=== PATIENT | female | born 1955 | race Caucasian/White ===

== ENCOUNTER 2016-07-02 19:18 | Observation (INO) | payer OTHER ==
[~2016-07-02] VITALS: Ht 162.6 cm; Wt 77.0 kg
[~2016-07-02 19:18] MED LIST changes: -LEVO50TA6 PO; -LEVO75TA5 PO; -OPTIRAY 320 IV PRN; -OXYC-57 PO
--- NOTE | 2016-07-02 19:57 | EMERGENCY ROOM VISIT NOTE ---
History First contact with patient: 19:39 Chief Complaint: ABDOMINAL PAIN Stated Complaint: ABD PAIN, ACUTE APPENDICITIES Nursing Triage Summary: Patient reports she had outpatient CT scan for possible appendicitis and was called to come to ER for diagnosed appendicitis. Patient also had blood work done earlier today as an outpatient. Patient has had bloating and abdominal pain. History of Present Illness The patient is a 61 year old female who presents to the Emergency Room with complaints of abdominal pain. She had vague abdominal pain for about two weeks, which was dull in character, would spread from the RUQ to RLQ to epigastric region. She felt worse today and left work, and saw her PCP who ordered a CT scan which showed appendicitis. She was sent here from the CT scanner due to appendicitis. She denies any pain or nausea at this time. She did not eat today but had drank contrast up until 6pm. She has had abdominal surgery before and has not had any issues with anesthesia. Review of Systems See HPI for pertinent positives & negatives. A total of 10 systems reviewed and were otherwise negative. Past Medical/Surgical History Medical Problems: (1) Carotid bruit (2) Hyperthyroidism (3) TIA (transient ischemic attack) Family History Cancer Diabetes mellitus Heart disease Hypertension Kidney disease Kidney stones Social History Smoking Status: Never Smoker Alcohol Use: none Drug Use: none Marital Status: Housing Status: lives with family Occupation Status: employed Current/Historical Medications Scheduled Cholecalciferol (Vitamin D3), 2,000 UNIT PO Q2D Levothyroxine Sodium (Levothyroxine Sodium), 1 TAB PO Q2D Levothyroxine Sodium (Levothyroxine Sodium), 1 TAB PO Q2D Metformin Hcl (Glucophage), 1,000 MG PO BID Simvastatin (Zocor), 10 MG PO HS Scheduled PRN Aspirin (Aspirin Ec), 81 MG PO DAILY PRN for PRN Calcium/Vitamin D (Os-Girish 500 Plus D), 1 TAB PO DAILY PRN for PRN Fish Oil ([place]-3), 1 CAP PO QPM PRN for PRN Magnesium Oxide (Mag-Ox), Unknown Dose PO DAILY PRN for PRN Allergies Coded Allergies: Doxycycline (Verified Allergy, Unknown, severe H/A, 07/02/16) Physical Exam Vital Signs Date Time Temp Pulse Resp B/P Pulse Ox O2 Delivery O2 Flow Rate FiO2 07/02/16 19:20 37.1 108 18 143/94 96 Room Air Physical Exam GENERAL: Awake, alert, well-appearing, in no acute distress HENT: Normocephalic, atraumatic. Oropharynx unremarkable. EYES: Normal conjunctiva. Sclera non-icteric. NECK: Supple. No nuchal rigidity. FROM. No JVD. RESPIRATORY: Clear to auscultation. CARDIAC: Regular rate, normal rhythm. Extremities warm and well perfused. Pulses equal. ABDOMEN: Soft, non-distended. Mild tenderness to palpation of RLQ. No rebound or guarding. No masses. RECTAL: Deferred. MUSCULOSKELETAL: Chest examination reveals no tenderness. The back is symmetrical on inspection without obvious abnormality. There is no CVA tenderness to palpation. No joint edema. LOWER EXTREMITIES: Calves are equal size bilaterally and non-tender. No edema. No discoloration. NEURO: Normal sensorium. No sensory or motor deficits noted. SKIN: No rash or jaundice noted. Medical Decision & Procedures Laboratory Results Test 07/02/16 19:50 Medications Administered Medications (Trade) Dose Ordered Sig/Loraine Route Start Time Stop Time Status Last Admin Dose Admin Lactated Ringer's (Lr 1000ml) 1,000 ml @ 125 mls/hr Q8H IV 07/02/16 20:00 08/01/16 19:59 07/02/16 20:33 125 MLS/HR Procedure CT OF THE ABDOMEN AND PELVIS WITH CONTRAST CLINICAL HISTORY: Abdominal pain. COMPARISON STUDY: Abdominal ultrasound May 22, 2007. TECHNIQUE: Following IV administration of 118 mL of Optiray-320, axial images of the abdomen and pelvis were obtained from the lung bases to the proximal femurs. Images were reviewed in the axial, sagittal, and coronal planes. IV contrast was administered without complication. Oral contrast was administered. CT DOSE: 450.57 mGy.cm FINDINGS: The liver is unremarkable with the exception of a 1.3 cm subcapsular segment 7 lesion. This is unchanged since ultrasound of May 22, 2007 and is therefore benign. This likely reflects a hemangioma. The spleen, adrenal glands, kidneys and pancreas are normal. There is no evidence for a bowel obstruction. The appendix is moderately dilated, measuring 1.1 cm in caliber. There is mild periappendiceal infiltration. There is no free air or abscess. The uterus is nonvisualized. No lymphadenopathy is present. Skeletal structures are unremarkable. Mild asymmetric enlargement of the right ovary. IMPRESSION: 1. Findings consistent with acute appendicitis. No free air or abscess. 2. Mild asymmetric enlargement of the right ovary. This finding is of questionable significance but a follow-up nonemergent pelvic ultrasound is recommended. Electronically signed by: Quintin Sharp M.D. 07/02/2016 6:35 PM Dictated Date/Time: 07/02/2016 6:30 PM ED Course 7:54: I evaluated the patient in room C6. A complete history and physical examination were performed. 7:58: I ordered a CBC, CMP - these were later cancelled as the patient had them performed earlier in the day. Her CT scan results were reviewed. She was made NPO and given IV fluids. 8:51: I discussed the case with Dr Sheffield, General Surgeon employee relations manager. He will see the patient. Medical Decision 61 yo F with 2 weeks of abdominal pain and diarrhea - differential includes appendicitis, diverticulitis, cholecystitis, pancreatitis, or gastritis. She had a CT scan that showed appendicitis. Her CT scan also showed R sided ovarian enlargement, which should be follow up as an outpatient. Her exam was relatively benign for her presentation, which is also atypical. With her CT scan findings, she had General Surgery consulted who will come see and accept the patient. Impression Primary Impression: Appendicitis Departure Information Dispostion Being Evaluated By Surgeon Condition GOOD Referrals RV. Stock MD (PCP) Patient Instructions My [facility] Resident Tracking Resident Involvement: Resident Care Provided Care Provided: Adult ED
[2016-07-02] MEDS ORDERED: LACTATED RINGER'S 1000ML 1,000 ML IV SCH (20:00)
--- NOTE | 2016-07-02 20:09 | DIAGNOSTIC IMAGING REPORT ---
CHEST ONE VIEW PORTABLE CLINICAL HISTORY: Preoperative evaluation. COMPARISON STUDY: Chest radiograph February 21, 2016. FINDINGS: Lung volumes are normal. Lungs are clear. There is no pneumothorax or pleural effusion. Cardiac size is normal. Mediastinal contours are normal. There is no evidence of pulmonary edema. IMPRESSION: No acute cardiopulmonary findings. Electronically signed by: Quintin Sharp M.D. 07/02/2016 8:08 PM Dictated Date/Time: 07/02/2016 8:08 PM
--- NOTE | 2016-07-02 21:16 | EMERGENCY ROOM VISIT NOTE ---
History Report prepared by Deborahibnorma: [place] Under the Supervision of: Dr. Gustavo Riley D.O. First contact with patient: 19:39 Chief Complaint: ABDOMINAL PAIN Stated Complaint: ABD PAIN, ACUTE APPENDICITIES Nursing Triage Summary: Patient reports she had outpatient CT scan for possible appendicitis and was called to come to ER for diagnosed appendicitis. Patient also had blood work done earlier today as an outpatient. Patient has had bloating and abdominal pain. History of Present Illness The patient is a 61 year old female who presents to the Emergency Room with complaints of worsening abdominal pain for the past two days. She also notes feeling bloated. The patient has had vague abdominal pain for the past week or two. Today the pain became much worse and localized to the right lower quadrant. The pain is rated 3/10 in severity. The patient denies nausea, vomiting, or diarrhea. She had a CT in outpatient that showed acute appendicitis , and she came straight to the ED. The patient has requested Dr. Desai to perform the surgery, who is not general road production manager. The patient is not on any blood thinners. Source of History: patient Onset: two days Position: abdomen (RLQ) Symptom Intensity: 3/10 Timing: worsening Associated Symptoms: No diarrhea, No nausea, No vomiting Review of Systems See HPI for pertinent positives & negatives. A total of 10 systems reviewed and were otherwise negative. Past Medical & Surgical Medical Problems: (1) Acute appendicitis (2) Carotid bruit (3) Hyperthyroidism (4) TIA (transient ischemic attack) Family History Cancer Diabetes mellitus Heart disease Hypertension Kidney disease Kidney stones Social History Smoking Status: Never Smoker Alcohol Use: none Drug Use: none Marital Status: Housing Status: lives with family Occupation Status: employed Current/Historical Medications Scheduled Cholecalciferol (Vitamin D3), 2,000 UNIT PO Q2D Levothyroxine Sodium (Levothyroxine Sodium), 1 TAB PO Q2D Levothyroxine Sodium (Levothyroxine Sodium), 1 TAB PO Q2D Metformin Hcl (Glucophage), 1,000 MG PO BID Simvastatin (Zocor), 10 MG PO HS Scheduled PRN Aspirin (Aspirin Ec), 81 MG PO DAILY PRN for PRN Calcium/Vitamin D (Os-Girish 500 Plus D), 1 TAB PO DAILY PRN for PRN Fish Oil ([place]-3), 1 CAP PO QPM PRN for PRN Magnesium Oxide (Mag-Ox), Unknown Dose PO DAILY PRN for PRN Allergies Coded Allergies: Doxycycline (Verified Allergy, Unknown, severe H/A, 07/02/16) Physical Exam Vital Signs Date Time Temp Pulse Resp B/P Pulse Ox O2 Delivery O2 Flow Rate FiO2 07/02/16 21:51 77 16 112/69 97 Room Air 07/02/16 19:20 37.1 108 18 143/94 96 Room Air Physical Exam CONSTITUTIONAL/VITAL SIGNS: Reviewed / noted above. GENERAL: Non-toxic in appearance. INTEGUMENTARY: Warm, dry, and [place]. HEAD: Normocephalic. EYES: without scleral icterus or trauma. ENT/OROPHARYNX: clear and moist. LYMPHADENOPATHY/NECK: Is supple without lymphadenopathy or meningismus. RESPIRATORY: Lungs clear and equal. CARDIOVASCULAR: Regular rate and rhythm. GI/ABDOMEN: Soft and nontender. No organomegaly or pulsatile mass. No rebound or guarding. Normal bowel sounds. EXTREMITIES: Warm and well perfused. BACK: No CVA tenderness. NEUROLOGICAL: Intact without focal deficits. PSYCHIATRIC: normal affect. MUSCULOSKELETAL: Normally developed with good muscle tone. Medical Decision & Procedures ER Provider Diagnostic Interpretation: CT results as stated below per my review and radiologist interpretation: CT OF THE ABDOMEN AND PELVIS WITH CONTRAST CLINICAL HISTORY: Abdominal pain. COMPARISON STUDY: Abdominal ultrasound May 22, 2007. TECHNIQUE: Following IV administration of 118 mL of Optiray-320, axial images of the abdomen and pelvis were obtained from the lung bases to the proximal femurs. Images were reviewed in the axial, sagittal, and coronal planes. IV contrast was administered without complication. Oral contrast was administered. CT DOSE: 450.57 mGy.cm FINDINGS: The liver is unremarkable with the exception of a 1.3 cm subcapsular segment 7 lesion. This is unchanged since ultrasound of May 22, 2007 and is therefore benign. This likely reflects a hemangioma. The spleen, adrenal glands, kidneys and pancreas are normal. There is no evidence for a bowel obstruction. The appendix is moderately dilated, measuring 1.1 cm in caliber. There is mild periappendiceal infiltration. There is no free air or abscess. The uterus is nonvisualized. No lymphadenopathy is present. Skeletal structures are unremarkable. Mild asymmetric enlargement of the right ovary. IMPRESSION: 1. Findings consistent with acute appendicitis. No free air or abscess. 2. Mild asymmetric enlargement of the right ovary. This finding is of questionable significance but a follow-up nonemergent pelvic ultrasound is recommended. Electronically signed by: Quintin Sharp M.D. 07/02/2016 6:35 PM CHEST ONE VIEW PORTABLE CLINICAL HISTORY: Preoperative evaluation. COMPARISON STUDY: Chest radiograph February 21, 2016. FINDINGS: Lung volumes are normal. Lungs are clear. There is no pneumothorax or pleural effusion. Cardiac size is normal. Mediastinal contours are normal. There is no evidence of pulmonary edema. IMPRESSION: No acute cardiopulmonary findings. Electronically signed by: Quintin Sharp M.D. 07/02/2016 8:08 PM Dictated Date/Time: 07/02/2016 8:08 PM Medications Administered Medications (Trade) Dose Ordered Sig/Loraine Route Start Time Stop Time Status Last Admin Dose Admin Lactated Ringer's 1,000 ml @ 125 mls/hr Q8H IV 07/02/16 20:00 08/01/16 19:59 07/02/16 20:33 125 MLS/HR Sodium Chloride (Nss 1000ml) 1,000 ml @ 999 mls/hr Q1H1M IV 07/02/16 21:45 08/01/16 21:44 07/02/16 21:43 999 MLS/HR Cefoxitin Sodium (Mefoxin IV) 2,000 mg STK-MED ONCE .ROUTE 07/02/16 21:53 07/02/16 21:56 DC 07/02/16 22:01 2,000 MG ED Course 0: Evaluated by my resident. 1999: Previous medical records were reviewed. The patient was evaluated in room C6. A complete history and physical examination was performed. 2000: Lactated Ringer's 1000 ml @ 125 mls/hr. 2099: My resident spoke with the general road production manager surgeon, Dr. Sheffield. He will evaluated the patient. Medical Decision Differential considered: pancreatitis, hepatitis, acute cholecystitis, AAA, UTI , pyelonephritis, kidney stones, appendicitis, diverticulitis, shingles, bowel obstruction, mesenteric ischemia, intussusception,hernia. This is a 61-year-old female who presents to the ED with a chief complaint of abdominal pain. The patient reports a week's worth of generalized abdominal pain. She had an outpatient CT scan today that revealed findings to suggest appendicitis. She had outpatient blood work as well. This has been reviewed. White blood cell count was 11.17. Chemistry panel was normal. Urine was suggestive of possible UTI. Urine culture pending. The patient was referred to the general surgeon on-call. Please see his documentation for additional care and treatment. Impression Primary Impression: Appendicitis Scribe Attestation The scribe's documentation has been prepared under my direction and personally reviewed by me in its entirety. I confirm that the note above accurately reflects all work, treatment, procedures, and medical decision making performed by me. Departure Information Dispostion Being Evaluated By Surgeon Referrals RV. Stock MD (PCP) Patient Instructions My [facility] Problem Qualifiers Primary Impression: Appendicitis Appendicitis type: acute appendicitis
[2016-07-02] MEDS ORDERED: SODIUM CHLORIDE 0.9% 1000ML 1,000 ML IV SCH (21:45)
[2016-07-02 21:51] VITALS: O2SAT 97
[2016-07-02] MEDS ORDERED: CEFOXITIN SOD 2 GM VIAL ONE (21:53)
[2016-07-02] MEDS ORDERED: CEFOXITIN SOD 2 GM VIAL IV STA (22:00)
--- NOTE | 2016-07-02 22:00 | History and Physical ---
History & Physical Date & Time of Service: Jul 02, 2016 at 21:54 Chief Complaint: Abd Pain, Acute Appendicities Primary Care Physician: RV. Stock MD History of Present Illness Source: patient The patient is a 61 year old female who presents to the Emergency Room with complaints of abdominal pain. She had vague abdominal pain for about two weeks, which was dull in character, would spread from the RUQ to RLQ to epigastric region. She felt worse today and left work, and saw her PCP who ordered a CT scan which showed appendicitis. She was sent here from the CT scanner due to appendicitis. She denies any pain or nausea at this time. She did not eat today but had drank contrast up until 6pm. She has had abdominal surgery before and has not had any issues with anesthesia. now pt is still have RLQ pain, pt denies fever, no diarrhea, Past Medical/Surgical History Medical Problems: (1) Carotid bruit Status: Resolved (2) Hyperthyroidism Status: Chronic (3) TIA (transient ischemic attack) Status: Resolved Family History Cancer Diabetes mellitus Heart disease Hypertension Kidney disease Kidney stones Social History Smoking Status: Never Smoker Smokeless Tobacco Use: No Alcohol Use: occasionally Drug Use: none Marital Status: Occupational Status: employed Multi-Drug Resistant Organisms History of MDRO: No Allergies Coded Allergies: Doxycycline (Verified Allergy, Unknown, severe H/A, 07/02/16) Home Medications Scheduled Cholecalciferol (Vitamin D3), 2,000 UNIT PO Q2D Levothyroxine Sodium (Levothyroxine Sodium), 1 TAB PO Q2D Levothyroxine Sodium (Levothyroxine Sodium), 1 TAB PO Q2D Metformin Hcl (Glucophage), 1,000 MG PO BID Simvastatin (Zocor), 10 MG PO HS Scheduled PRN Aspirin (Aspirin Ec), 81 MG PO DAILY PRN for PRN Calcium/Vitamin D (Os-Girish 500 Plus D), 1 TAB PO DAILY PRN for PRN Fish Oil ([place]-3), 1 CAP PO QPM PRN for PRN Magnesium Oxide (Mag-Ox), Unknown Dose PO DAILY PRN for PRN Review of Systems Constitutional: No chills, No fatigue, No fever, No problem reported, No sweats , No weakness, No weight loss Eyes: No diplopia, No discharge, No eye pain, No problem reported, No redness, No worsening of vision ENT: No dental problems, No hearing loss, No nasal symptoms, No problem reported, No sore throat, No tinnitus, No trouble swallowing, No unusual epistaxis Respiratory: No cough, No dyspnea at rest, No dyspnea on exertion, No hemoptysis, No problem reported, No shortness of breath, No sputum, No wheezing Cardiovascular: No PND, No chest pain, No claudication, No edema, No orthopnea , No palpitations, No problem reported Abdomen: + pain Musculoskeletal: No calf pain, No joint pain, No muscle pain, No problem reported, No swelling Genitourinary - Female: No dysmenorrhea, No dysuria, No hematuria, No menorrhagia, No metrorrhagia, No , No problem reported, No rash, No urinary frequency, No urinary incontinence, No urinary retention, No urinary urgency, No vaginal bleeding, No vaginal discharge, No vaginal itching, No vulvodynia Neurologic: No balance problems, No memory loss, No numbness/tingling, No paralysis, No problem reported, No vertigo, No weakness Psychiatric: No anhedonism, No anxiety, No depression symptoms, No insomnia, No problem reported, No substance abuse Hematologic / Lymphatic: No abnormal bleeding/bruising, No clotting problems, No night sweats, No problem reported, No swollen lymph nodes Physical Exam Vital Signs Date Time Temp Pulse Resp B/P Pulse Ox O2 Delivery O2 Flow Rate FiO2 07/02/16 21:51 77 16 112/69 97 Room Air 07/02/16 19:20 37.1 108 18 143/94 96 Room Air General Appearance: WD/WN, + mild distress Head: normocephalic Eyes: normal inspection ENT: normal ENT inspection Neck: supple, no JVD Respiratory/Chest: chest non-tender, lungs clear Cardiovascular: regular rate, rhythm, no edema, no gallop, no JVD, no murmur Abdomen/GI: soft, + tenderness (tenderness at RLQ, no rebound pain, ) Extremities/Musculoskelatal: normal inspection, no calf tenderness, normal capillary refill Neurologic/Psych: spa concierge II-XII nml as tested, no motor/sensory deficits, alert, normal mood/affect Skin: normal color, warm/dry, no rash Diagnostics Diagnostic Radiology CT scan-CT DOSE: 450.57 mGy.cm FINDINGS: The liver is unremarkable with the exception of a 1.3 cm subcapsular segment 7 lesion. This is unchanged since ultrasound of May 22, 2007 and is therefore benign. This likely reflects a hemangioma. The spleen, adrenal glands, kidneys and pancreas are normal. There is no evidence for a bowel obstruction. The appendix is moderately dilated, measuring 1.1 cm in caliber. There is mild periappendiceal infiltration. There is no free air or abscess. The uterus is nonvisualized. No lymphadenopathy is present. Skeletal structures are unremarkable. Mild asymmetric enlargement of the right ovary. IMPRESSION: 1. Findings consistent with acute appendicitis. No free air or abscess. 2. Mild asymmetric enlargement of the right ovary. This finding is of questionable significance but a follow-up nonemergent pelvic ultrasound is recommended. CXR normal Impression Assessment and Plan IMP : Acute appendicitis Plan, I recommend to do laparoscopic appendectomy, possible open, D/W benefits, risks and alternatives of the procedure, the risks- infection, bleeding, abscess , injury bowel, FL, DVT, stroke, , pt understood, she agrees with the plan , I answered all questions, ASA Classification: ASA Class II Level of Care Med/Surg VTE Prophylaxis VTE Risk Assessment Done? Y/N: Yes Risk Level: Low Given or contraindicated: SCD's
[2016-07-02] MEDS ORDERED: LIDOCAINE HCL 1% 20 ML VIAL ONE (22:03)
[2016-07-02] MEDS ORDERED: BACITRACIN OINT 15 GM TUBE ONE (22:04)
[2016-07-02] MEDS ORDERED: BUPIVACAINE 0.5 % 5 MG/1 ML MPF 30ML VIAL ONE (22:04)
[2016-07-02] MEDS ORDERED: HYDROmorphone INJ 1 MG/ML SYR IV PRN (22:15)
[2016-07-02] MEDS ORDERED: ONDANSETRON INJ 2 MG/ML 2 ML VIAL IV PRN ×2 (22:15→22:45)
[2016-07-02] MEDS ORDERED: MIDAZOLAM HCL 1 MG/ML 2ML VIAL ONE (22:23)
[2016-07-02] MEDS ORDERED: FENTANYL CITRATE INJ 50 MCG/1 ML 2 ML VIAL ONE ×2 (22:23→23:06)
[2016-07-02] MEDS ORDERED: HYDROmorphone INJ 0.5 MG/0.5 ML SYR IV PRN (22:45)
[2016-07-02] MEDS ORDERED: FENTANYL CITRATE INJ 50 MCG/1 ML 2 ML VIAL IV PRN (22:45)
[2016-07-02] MEDS ORDERED: EpHEDrine SULFATE INJ 50 MG/ML AMP IV PRN (22:45)
[2016-07-02] MEDS ORDERED: ATROPINE SULFATE 0.1 MG/ML 5ML SYR IV PRN (22:45)
[2016-07-02] MEDS ORDERED: ONDANSETRON INJ 2 MG/ML 2 ML VIAL ONE (23:09)
[2016-07-02] MEDS ORDERED: PROPOFOL IV EMULSION 10 MG/ML 20 ML VIAL IV ONE (23:09)
[2016-07-02] MEDS ORDERED: SUCCINYLCHOLINE 100MG/5ML SYR IV ONE (23:09)
[2016-07-02] MEDS ORDERED: DEXAMETHASONE SOD INJ 4 MG/ML VIAL ONE (23:09)
[2016-07-02] MEDS ORDERED: ROCURONIUM BROMIDE 10 MG/ML 5 ML VIAL ONE (23:09)
[2016-07-02] MEDS ORDERED: IV FLUIDS COMPLETED PRN (23:15)
[2016-07-03] VITALS (10 sets, daily range): BP systolic 96–113; BP diastolic 47–76; PULSE 68–90; TEMP 36.7–37.2; O2SAT 95–99; Ht 162.6 cm; Wt 77.0 kg
--- NOTE | 2016-07-03 00:16 | [facility] Post Operative Brief Note ---
Immediate Operative Summary Operative Date Jul 03, 2016. Pre-Operative Diagnosis Acute Appendicitis Post-Operative Diagnosis Acute Appendicitis Procedure(s) Performed Laparoscopic Appendectomy Surgeon Dr. Sheffield Manager Customs Surgeon(s) none Estimated Blood Loss 10 cc Findings Acute appendicitis Fluids (cc crystalloids) 1200ml Specimens A: Appendix Drains none Anesthesia general Complication(s) None Disposition Recovery Room / PACU
--- NOTE | 2016-07-03 01:10 | Anesthesiology Progress Note ---
Anesthesia Post Op Note Date & Time Jul 03, 2016 at 01:09 Vital Signs Pain Intensity: 4 Vital Signs Past 12 Hours Date Time Temp Pulse Resp B/P Pulse Ox O2 Delivery O2 Flow Rate FiO2 07/03/16 01:00 36.6 64 16 128/69 100 Nasal Cannula 2 07/03/16 00:45 36.2 68 16 106/54 100 Nasal Cannula 2 07/03/16 00:40 36.2 56 18 105/63 100 Nasal Cannula 2 07/03/16 00:30 36.2 16 105/63 100 Nasal Cannula 4 07/03/16 00:25 36.2 63 16 107/61 100 Venturi Mask 10 07/03/16 00:20 36.2 65 12 100/67 100 Venturi Mask 07/02/16 21:51 77 16 112/69 97 Room Air 07/02/16 19:20 37.1 108 18 143/94 96 Room Air Notes Mental Status: alert / awake / arousable, participated in evaluation Pt Amnestic to Procedure: Yes Nausea / Vomiting: adequately controlled Pain: adequately controlled Airway Patency, RR, SpO2: stable & adequate BP & HR: stable & adequate Hydration State: stable & adequate Anesthetic Complications: no major complications apparent
[2016-07-03] MEDS: D5W AND 1/2NSS + 20MEQ KCL 1,000 ML IV SCH ×2 (01:57→12:52)
--- NOTE | 2016-07-03 03:49 | OPERATIVE REPORT ---
DATE OF OPERATION: 07/02/2016 PREOPERATIVE DIAGNOSIS: Acute appendicitis. POSTOPERATIVE DIAGNOSIS: Same. OPERATION: Laparoscopic appendectomy. SURGEON: Roberto Sheffield MD ANESTHESIA: General. ESTIMATED BLOOD LOSS: About 10 mL. IV FLUIDS: 1200 mL. FINDINGS: Acute appendicitis. COMPLICATIONS: None. INDICATIONS FOR THE PROCEDURE: This is a 61-year-old female, who presented to the ED with 2 weeks history of right lower quadrant pain and the patient had a CT scan with diagnosis of acute appendicitis. We decided to take the patient to the OR to do a laparoscopic appendectomy, possibly open. I did talk to the patient about the benefits, risks and alternate procedure. I indicated the risks may include but not limited such as bleeding, infection, abscess, sepsis, injury to bowel, incisional hernia, myocardial infarction, DVT, stroke and even . The patient understands. She signed the informed consent and I answered all questions. DETAILS OF THE PROCEDURE: We brought the patient to the OR and put the patient in the supine position. The patient received SCD on bilateral legs to prevent DVT. Also, the patient received 2 gram cefoxitin IV for prophylactic antibiotic. The patient received general anesthesia without difficulty. The abdomen was prepped and draped in routine sterile fashion. After timeout, I injected local anesthesia by using 1% lidocaine mixed with 0.5% Marcaine around the umbilical area. I made a small incision just above the umbilicus, opened fascia and opened peritoneum under direct vision. I put a Jesús trocar in, connected to CO2 to create pneumoperitoneum. Flow rate at 6 liters per minute. Pressure not more than 14 mmHg. Once we got a nice pneumoperitoneum, we put a 10 mm camera in and looked around the abdomen. It showed normal finding in the stomach, small bowel, large bowel and liver. However, the appendix has significant inflammation, edema and chronic reaction. Then we put another two 5 mm trocars just below the umbilicus about 3 cm each apart. Once all the trocars were in, I put a grasper in to hold the appendix and used a Harmonic to take down the appendiceal and I used a 45 mm Endo-NELSON staple transection at the base of the appendix, rechecked, no active bleeding, no leak and no injury to bowel. Then we pulled out the appendix through the catch bag. Then we reinserted the Jesús trocar in and looked at the abdomen; showing no injury to the bowel, no leak and no active bleeding. Then we removed all trocars under direct vision. No active bleeding from the trocar sites. The pneumoperitoneum was released. Then using #1 Vicryl, closed the umbilical incision and fascial layer with [id number] x2, closed subcutaneous layer by using 2-0 Vicryl interrupted and closed skin by using 4-0 Vicryl. Another two 5 mm trocar site and closed skin only by using 4-0 Vicryl and then we put the dressing on. The patient tolerated the procedure well. All the instrument, needle and sponge count were correct x2 at the end of case. The specimen was sent to pathology. The patient was transferred to recovery room in stable condition. After the procedure, I did talk to the patient's family members and the patient's about the OR finding and the procedure we did. They understand. I attest to the content of the Intraoperative Record and any orders documented therein. Any exceptions are noted below. ROD
[2016-07-03] MEDS: CEFOXITIN IV 1,000 MG in DEXTROSE 5% 50ML 50 ML IV SCH ×3 (03:50→16:12)
[2016-07-03 06:56] LABS: BASO % 0.1 %; BASO ABS # 0.01 K/uL (0-0.2); COMPLETE YES; HEMATOCRIT 37.7 % (37-47); IG% 0.2 %; LYMPH % 7.4 %; LYMPH ABS # 0.68 K/uL (1.2-3.4); MEAN CELL VOLUME 88.5 fL (80-100); MEAN CORPUSCULAR HEMOGLOBIN 29.6 pg (25-34); MEAN CORPUSCULAR HGB CONC 33.4 g/dl (32-36); MEAN PLATELET VOLUME 10.4 fL (7.4-10.4); MONO % 5.3 %; PLATELET COUNT 218 K/uL (130-400); RED BLOOD COUNT 4.26 M/uL (4.2-5.4); WHITE BLOOD COUNT 9.17 K/uL (4.8-10.8)
--- NOTE | 2016-07-03 08:20 | DISCHARGE SUMMARY ---
DATE OF DISCHARGE: 07/03/2016. ADMITTING DIAGNOSIS: Acute appendicitis. DISCHARGE DIAGNOSIS: Same. OPERATION: Laparoscopic appendectomy. SURGEON: Dr. Roberto Sheffield. DETAILS OF DISCHARGE SUMMARY: This is 61-year-old female who presented to the ED with 2 week history of abdominal pain. The patient had CT scan showed acute appendicitis. We did take the patient to the OR and we did laparoscopic appendectomy. The patient tolerated the procedure well. After the procedure the patient was transferred to recovery room and later on transported to the recovery room in stable condition. The patient doing fine after the procedure. I saw the patient in the morning. PHYSICAL EXAMINATION: VITAL SIGNS: Temperature is 36.8. Heart rate 82. Respiratory rate 18. Blood pressure 105/67. O2 saturation 95% on room air. GENERAL: The patient is alert, awake, oriented x3. No distress. HEAD, EYES, EARS, NOSE, AND THROAT: Within normal limitation. NEUROLOGIC EXAMINATION: Intact. NECK: No JVD. CHEST: Bilateral lung sounds clear. HEART: Normal S1, S2. No murmur. ABDOMEN: Soft, no distention. All dressings intact. Only incision pain. Bowel sounds positive. EXTREMITIES: No edema. So the patient wanted to go home today. We gave the patient the postop care instructions. Instructed the patient the patient should come back to hospital ER if patient develops any severe abdominal pain, nausea, vomiting, temperature, diarrhea. The patient understands. We will follow up the patient in 1 week.
[2016-07-03] MEDS: OXYCODONE/ACETAMINOPHEN 5-325 TAB PO PRN ×2 (10:53→17:26)
[2016-07-03] MEDS ORDERED: OXYC-57 PO (12:04)
--- NOTE | 2016-07-03 12:07 | Discharge Instructions ---
Discharge Instructions Admission Reason for Admission: Acute Appendicitis Discharge Discharge Diagnosis / Problem: s/p laparoscopic appendectomy Discharge Goals Goal(s): Decrease discomfort Activity Recommendations Activity Limitations: as noted below NO heavy lifting over 20 pounds for 2 weeks walking is encouraged may do steps NO driving while taking narcotic pain medication . Instructions / Follow-Up Instructions / Follow-Up May remove dressings in 4 days and then shower may sponge bath and get hair wet in meantime keep dressing clean and dry Follow-up in surgical office in 1 week, please call [phone] to make an appointment if you develop severe abdominal pain, nausea, vomiting, incisional bleeding/ drainage that is not controlled please call office or go to emergency room for further evaluation. Current Hospital Diet Patient's current hospital diet: Regular Diet Discharge Diet Recommended Diet: Regular Diet Procedures Procedures Performed: Laparoscopic Appendectomy Pending Studies Studies pending at discharge: no Medical Emergencies . Who to Call and When: Medical Emergencies: If at any time you feel your situation is an emergency, please call 911 immediately. . Non-Emergent Contact Non-Emergency issues call your: Primary Care Provider, Surgeon Call Non-Emergent contact if: temperature is above 101.5, your pain is not controlled, your pain is worsening, wound has increased drainage, wound has increased redness, wound has increased pain . "Provider Documentation" section prepared by Wanda Plunkett. VTE Core Measure Inpt VTE Proph given/why not?: SCD's [place] Drug Monitoring Program Search Results: patient reviewed within database, no issues identified
--- NOTE | 2016-07-03 15:30 | Surgery Progress Note ---
Surgery Progress Note Date of Service Jul 03, 2016. Subjective Post OP Day: POD # 0 + ambulating, + diet (regular diet), + feeling well, + pain controlled, No SOB, No bowel movement, No chest pain, No complaints, No flatus, No nausea, No vomiting Objective Vital Signs: Date Time Temp Pulse Resp B/P Pulse Ox O2 Delivery O2 Flow Rate FiO2 07/03/16 15:08 36.9 72 16 97/47 97 Room Air 07/03/16 11:30 36.7 69 16 96/69 95 Room Air 07/03/16 07:54 36.7 85 16 113/76 96 Room Air 07/03/16 07:30 Room Air 07/03/16 04:52 36.8 82 18 105/67 95 Room Air 07/03/16 03:50 37.0 88 18 97/57 96 Room Air 07/03/16 02:50 37.2 90 17 105/57 97 Nasal Cannula 2.0 07/03/16 01:52 37.1 71 19 107/64 99 Nasal Cannula 2.0 07/03/16 01:20 37.1 68 14 101/63 96 Room Air 07/03/16 01:20 Nasal Cannula 2.0 07/03/16 01:20 Nasal Cannula 2.0 07/03/16 01:20 Nasal Cannula 2.0 07/03/16 01:00 36.6 64 16 128/69 100 Nasal Cannula 2 07/03/16 00:45 36.2 68 16 106/54 100 Nasal Cannula 2 07/03/16 00:40 36.2 56 18 105/63 100 Nasal Cannula 2 07/03/16 00:30 36.2 16 105/63 100 Nasal Cannula 4 07/03/16 00:25 36.2 63 16 107/61 100 Venturi Mask 10 07/03/16 00:20 36.2 65 12 100/67 100 Venturi Mask 07/02/16 21:51 77 16 112/69 97 Room Air 07/02/16 19:20 37.1 108 18 143/94 96 Room Air General Appearance: WD/WN, no apparent distress Head: normocephalic, atraumatic Respiratory/Chest: no respiratory distress, no accessory muscle use Abdomen: non distended, soft, no organomegaly, no pulsatile mass, + tenderness (appropriate post op) Incision(s): clean (dressing clean and dry), dry Laboratory Results: Results Past 24 Hours Test 07/03/16 06:28 Range/Units White Blood Count 9.17 4.8-10.8 K/uL Red Blood Count 4.26 4.2-5.4 M/uL Hemoglobin 12.6 12.0-16.0 g/dL Hematocrit 37.7 37-47 % Mean Corpuscular Volume 88.5 80-100 fL Mean Corpuscular Hemoglobin 29.6 25-34 pg Mean Corpuscular Hemoglobin Concent 33.4 32-36 g/dl Platelet Count 218 130-400 K/uL Mean Platelet Volume 10.4 7.4-10.4 fL Neutrophils (%) (Auto) 87.0 % Lymphocytes (%) (Auto) 7.4 % Monocytes (%) (Auto) 5.3 % Eosinophils (%) (Auto) 0.0 % Basophils (%) (Auto) 0.1 % Neutrophils # (Auto) 7.97 1.4-6.5 K/uL Lymphocytes # (Auto) 0.68 1.2-3.4 K/uL Monocytes # (Auto) 0.49 0.11-0.59 K/uL Eosinophils # (Auto) 0.00 0-0.5 K/uL Basophils # (Auto) 0.01 0-0.2 K/uL RDW Standard Deviation 44.3 36.4-46.3 fL RDW Coefficient of Variation 13.7 11.5-14.5 % Immature Granulocyte % (Auto) 0.2 % Immature Granulocyte # (Auto) 0.02 0.00-0.02 K/uL Hepatitis C Antibody Screen NEG NEG Assessment & Plan POD # 0 s/p laparoscopic appendectomy - avss - pain controlled with oral Percocet - ambulating and urinating without difficulty Plan: Plan for discharge today Discharge instructions given rx for PO Percocet prn pain follow-up office 1 week
== END 2016-07-03 18:55 | disposition home or self-care (01) ==
LOC: ENRESERVDT → ENRESERVTM → C.EDB 19:19 → C.MSW 22:07
PROVIDERS: ADMIT Surgery; ATTEND Surgery
DX: K35.80 Unspecified acute appendicitis (principal); Z86.73 Personal history of transient ischemic attack (TIA), and cerebral infarction without residual deficits; Z83.3 Family history of diabetes mellitus; Z82.49 Family history of ischemic heart disease and other diseases of the circulatory system; Z84.1 Family history of disorders of kidney and ureter; Z79.82 Long term (current) use of aspirin; Z79.899 Other long term (current) drug therapy

== ENCOUNTER → 2016-07-02 | Outpatient (CLI) | payer OTHER ==
[~2016-07-02] MED LIST: ASPI81TA28 PO; CALC500C70 PO; CHOL20007 PO; GLC/500 PO; LEVO50TA6 PO; LEVO75TA5 PO; MAGN400T6 PO; OMEG10007 PO; OPTIRAY 320 IV PRN; OXYC-57 PO; SIMV10TA2 PO
[2016-07-02 17:13] LABS: BASO % 0.2 %; BASO ABS # 0.02 K/uL (0-0.2); COMPLETE YES; EOS % 3.3 %; HEMATOCRIT 41.4 % (37-47); IG% 0.2 %; LYMPH % 19.6 %; LYMPH ABS # 2.19 K/uL (1.2-3.4); MEAN CELL VOLUME 87.7 fL (80-100); MEAN CORPUSCULAR HEMOGLOBIN 30.1 pg (25-34); MEAN CORPUSCULAR HGB CONC 34.3 g/dl (32-36); MEAN PLATELET VOLUME 10.4 fL (7.4-10.4); MONO % 9.8 %; NEUT % 66.9 %; PLATELET COUNT 251 K/uL (130-400); RED BLOOD COUNT 4.72 M/uL (4.2-5.4); WHITE BLOOD COUNT 11.17 K/uL (4.8-10.8)
[2016-07-02 17:24] LABS: URINE APPEARANCE CLEAR (CLEAR); URINE BILIRUBIN NEG (NEG); URINE COLOR YELLOW; URINE NITRITE NEG (NEG); URINE PH 7.5 (4.5-7.5); URINE SPECIFIC GRAVITY 1.013 (1.000-1.030); UROBILINOGEN NEG (NEG)
[2016-07-02 17:28] LABS: ALT/SGPT 70 U/L (12-78); AST/SGOT 25 U/L (15-37); BLOOD UREA NITROGEN 11 mg/dl (7-18); BUN/CREATININE RATIO 14.2 (10-20); CALCIUM 9.4 mg/dl (8.5-10.1); CARBON DIOXIDE 28 mmol/L (21-32); CHLORIDE 103 mmol/L (98-107); CREATININE 0.75 mg/dl (0.60-1.20); GLUCOSE 89 mg/dl (70-99); POTASSIUM 3.9 mmol/L (3.5-5.1); SODIUM 141 mmol/L (136-145)
[2016-07-02 17:30] LABS: MANUAL MICROSCOPIC REQUIRED? NO; REVIEW REQ? NO
[2016-07-02 17:31] LABS: ALB/GLOB RATIO 1.1 (0.9-2); ALKALINE PHOSPHATASE 117 U/L (45-117)
--- NOTE | 2016-07-02 18:37 | DIAGNOSTIC IMAGING REPORT ---
CT OF THE ABDOMEN AND PELVIS WITH CONTRAST CLINICAL HISTORY: Abdominal pain. COMPARISON STUDY: Abdominal ultrasound May 22, 2007. TECHNIQUE: Following IV administration of 118 mL of Optiray-320, axial images of the abdomen and pelvis were obtained from the lung bases to the proximal femurs. Images were reviewed in the axial, sagittal, and coronal planes. IV contrast was administered without complication. Oral contrast was administered. CT DOSE: 450.57 mGy.cm FINDINGS: The liver is unremarkable with the exception of a 1.3 cm subcapsular segment 7 lesion. This is unchanged since ultrasound of May 22, 2007 and is therefore benign. This likely reflects a hemangioma. The spleen, adrenal glands, kidneys and pancreas are normal. There is no evidence for a bowel obstruction. The appendix is moderately dilated, measuring 1.1 cm in caliber. There is mild periappendiceal infiltration. There is no free air or abscess. The uterus is nonvisualized. No lymphadenopathy is present. Skeletal structures are unremarkable. Mild asymmetric enlargement of the right ovary. IMPRESSION: 1. Findings consistent with acute appendicitis. No free air or abscess. 2. Mild asymmetric enlargement of the right ovary. This finding is of questionable significance but a follow-up nonemergent pelvic ultrasound is recommended. Electronically signed by: Quintin Sharp M.D. 07/02/2016 6:35 PM Dictated Date/Time: 07/02/2016 6:30 PM
== END | disposition home or self-care (01) ==
LOC: C.CTS 16:12
PROVIDERS: ATTEND Internal Medicine Geriatric Medicine
DX: R10.9 Unspecified abdominal pain (principal); G47.30 Sleep apnea, unspecified

== ENCOUNTER → 2016-07-07 | Outpatient (CLI) | payer OTHER ==
[~2016-07-07] MED LIST changes: +LEVO50TA6 PO; +LEVO75TA5 PO; +OXYC-57 PO
[2016-07-07 09:54] LABS: ALT/SGPT 816 U/L (12-78); AST/SGOT 288 U/L (15-37); BLOOD UREA NITROGEN 12 mg/dl (7-18); BUN/CREATININE RATIO 15.3 (10-20); CALCIUM 9.4 mg/dl (8.5-10.1); CARBON DIOXIDE 25 mmol/L (21-32); CHLORIDE 104 mmol/L (98-107); CHOLESTEROL 189 mg/dl (0-200); CREATININE 0.77 mg/dl (0.60-1.20); GLUCOSE 115 mg/dl (70-99); POTASSIUM 3.8 mmol/L (3.5-5.1); SODIUM 142 mmol/L (136-145); TRIGLYCERIDES 175 mg/dl (0-150); VERY LOW DENSITY LIPOPROT CALC 35 mg/dl
[2016-07-07 09:57] LABS: HDL CHOLESTEROL 63 mg/dl; LDL CHOLESTEROL CALCULATED 91 mg/dl
== END | disposition home or self-care (01) ==
LOC: C.LAB 08:04
PROVIDERS: ATTEND Internal Medicine Geriatric Medicine
DX: R73.9 Hyperglycemia, unspecified (principal); E78.5 Hyperlipidemia, unspecified

== ENCOUNTER → 2016-07-24 | Outpatient (CLI) | payer OTHER ==
[2016-07-24 11:43] LABS: ESTIMATED AVERAGE GLUCOSE 131 mg/dl; HA1C FLAG Normal (Normal)
[2016-07-24 12:32] LABS: THYROID STIMULATING HORMONE 0.898 uIu/ml (0.300-4.500)
== END | disposition home or self-care (01) ==
LOC: C.LAB 10:22
PROVIDERS: ATTEND Internal Medicine
DX: R74.8 Abnormal levels of other serum enzymes (principal); E88.81 Metabolic syndrome and other insulin resistance; E03.9 Hypothyroidism, unspecified

== ENCOUNTER → 2016-10-17 | Outpatient (CLI) | payer OTHER | END | disposition home or self-care (01) | LOC: C.LAB1850 16:37 | PROVIDERS: ATTEND Internal Medicine | DX: E78.5 Hyperlipidemia, unspecified (principal); M79.1 Myalgia ==

== ENCOUNTER → 2016-11-03 | Outpatient (CLI) | payer OTHER | END | disposition home or self-care (01) | LOC: C.LAB 09:09 | PROVIDERS: ATTEND Internal Medicine | DX: R74.8 Abnormal levels of other serum enzymes (principal) ==

== ENCOUNTER → 2016-11-27 | Outpatient (CLI) | payer OTHER | END | disposition home or self-care (01) | LOC: C.LAB1850 15:52 | PROVIDERS: ATTEND Internal Medicine | DX: R74.8 Abnormal levels of other serum enzymes (principal); E78.5 Hyperlipidemia, unspecified ==

== ENCOUNTER → 2016-12-03 | Outpatient (CLI) | payer OTHER ==
--- NOTE | 2016-12-03 07:46 | DIAGNOSTIC IMAGING REPORT ---
ULTRASOUND RIGHT UPPER QUADRANT ABDOMEN CLINICAL HISTORY: Elevated hepatic transaminases. COMPARISON STUDY: Abdominal CT dated 07/02/2016. TECHNIQUE: Real-time, grayscale, and color flow sonography of the right upper quadrant of the abdomen was performed. Images are reviewed in the transverse and longitudinal planes. FINDINGS: Liver: The liver is normal in size and echotexture. There is no intrahepatic biliary ductal dilatation. The main portal vein is patent. A 13 mm well-circumscribed hyperechoic lesion the right lobe incidentally noted and likely represents a small hemangioma. This was also seen by CT on 07/02/2016. Gallbladder: The gallbladder is normal in appearance. No gallstones are identified. There is no gallbladder wall thickening or pericholecystic fluid. A sonographic Perkins's sign is reportedly absent. The common bile duct measures up to 0.6 cm in diameter. Pancreas: Visualized portions of the pancreatic head and body are normal in appearance. Right kidney: Survey images of the right kidney demonstrate normal size and echotexture. There is no hydronephrosis. Ascites: None. IMPRESSION: No acute sonographic abnormality is identified in the right upper quadrant. No gallstones are seen. Electronically signed by: Alex Rea M.D. 12/03/2016 7:45 AM Dictated Date/Time: 12/03/2016 7:43 AM
== END | disposition home or self-care (01) ==
LOC: C.ULTR 07:01
PROVIDERS: ATTEND Internal Medicine
DX: R74.8 Abnormal levels of other serum enzymes (principal)

== ENCOUNTER → 2016-12-05 | Outpatient (CLI) | payer OTHER | END | disposition home or self-care (01) | LOC: C.LAB1850 08:43 | PROVIDERS: ATTEND Internal Medicine | DX: R74.8 Abnormal levels of other serum enzymes (principal) ==

== ENCOUNTER 2016-12-09 16:41 | Emergency (ER) | payer OTHER ==
[~2016-12-09] VITALS: Ht 162.6 cm; Wt 76.9 kg
[~2016-12-09 16:41] MED LIST changes: -LEVO50TA6 PO; -LEVO75TA5 PO
[2016-12-09 16:43] VITALS: TEMP 36.6; Ht 162.6 cm; Wt 76.9 kg
[2016-12-09 17:39] VITALS: BP 141/98; PULSE 70; O2SAT 98
--- NOTE | 2016-12-09 20:18 | EMERGENCY ROOM VISIT NOTE ---
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 The patient reports that she was changing an IV for source patient Ms. Sunni Dong, with attending physician Dr. Montana. She noticed that there were 2 tight knots in the IV tubing, and does not know how they developed as they were not there the last time that she checked the IV tubing. As she was attempting to unsecure the of, the tubing flicked upward and sprayed in her eyes. She reports that there was some blood flashback to the hub, but does not believe that any of the blood got through the of and into the IV tubing that splashed her. She spoke with Amy Boogie in [facility], who instructed her to come to the emergency department for baseline testing. The patient reports that she did irrigate her eyes well. She currently denies any blurred vision, drainage or pain. Tetanus immunization and hepatitis B immunization series are up-to-date. Review of Systems 10 system review was performed and was negative except for pertinent positives and negatives as indicated in history of present illness Past Medical/Surgical History Medical Problems: (1) Acute appendicitis (2) Carotid bruit (3) Hyperthyroidism (4) TIA (transient ischemic attack) Family History Cancer Diabetes mellitus Heart disease Hypertension Kidney disease Kidney stones Social History Smoking Status: Never Smoker Alcohol Use: none Drug Use: none Marital Status: Housing Status: lives with family Occupation Status: employed Current/Historical Medications Scheduled Levothyroxine Sodium (Levothyroxine Sodium), 50 MCG PO Q2D Levothyroxine Sodium (Levothyroxine Sodium), 75 MCG PO Q2D Physical Exam Vital Signs Date Time Temp Pulse Resp B/P (MAP) Pulse Ox O2 Delivery O2 Flow Rate FiO2 12/09/16 17:39 70 18 141/98 98 12/09/16 16:43 36.6 75 18 143/99 99 Room Air Pain Rating (0-10): 0 Physical Exam CONSTITUTIONAL: Healthy and well nourished. Patient does not appear in any acute distress. HEENT: Normocephalic, atraumatic. Pupils equal, round and reactive. No conjunctival injection or other mucopurulent drainage from the eyes. NECK: Full active range of motion without discomfort. INTEGUMENTARY: No rash or other significant dermatologic conditions noted. NEUROLOGIC: No focal neurologic deficits noted. Medical Decision & Procedures ED Course Patient history and physical exam were performed. Nurse's notes were reviewed. Vital signs were reviewed, showing an elevated blood pressure 143/99. The patient reports that her blood pressure is elevated because of being upset about this incident. Although I do not feel that the patient is at any significant risk, she reports that [facility] wanted baseline labs. The patient did sign an informed consent for baseline HIV testing. Labs were ordered, and the patient will follow-up with [facility] for further management. The patient declined HIV postexposure prophylaxis at the time of ER evaluation. Medical Decision Impression Primary Impression: Occupational exposure in workplace Departure Information Dispostion Home / Self-Care Condition GOOD Referrals RV. Stock MD (PCP) Forms HOME CARE DOCUMENTATION FORM, IMPORTANT VISIT INFORMATION Patient Instructions My [facility] Additional Instructions Continue follow-up with [facility]
[2016-12-09] MEDS ORDERED: LEVO50TA6 PO (21:59)
[2016-12-09] MEDS ORDERED: LEVO75TA5 PO (21:59)
== END 2016-12-09 17:38 | disposition home or self-care (01) ==
LOC: C.EDB 16:42 → C.EDD 17:38
DX: Z77.21 Contact with and (suspected) exposure to potentially hazardous body fluids (principal); Y99.0 Civilian activity done for income or pay; R09.89 Other specified symptoms and signs involving the circulatory and respiratory systems; E03.9 Hypothyroidism, unspecified; Z86.73 Personal history of transient ischemic attack (TIA), and cerebral infarction without residual deficits; Z83.3 Family history of diabetes mellitus; Z82.49 Family history of ischemic heart disease and other diseases of the circulatory system; Z84.1 Family history of disorders of kidney and ureter

== ENCOUNTER → 2016-12-25 | Outpatient (CLI) | payer OTHER ==
[~2016-12-25] MED LIST changes: -ASPI81TA28 PO; -CALC500C70 PO; -CHOL20007 PO; -GLC/500 PO; +LEVO50TA6 PO; +LEVO75TA5 PO; -MAGN400T6 PO; -OMEG10007 PO; -OXYC-57 PO; -SIMV10TA2 PO
== END | disposition home or self-care (01) ==
LOC: C.LAB1850 14:01
PROVIDERS: ATTEND Internal Medicine
DX: R74.8 Abnormal levels of other serum enzymes (principal)

== ENCOUNTER → 2016-12-30 | Outpatient (CLI) | payer OTHER ==
--- NOTE | 2016-12-31 07:56 | MAMMOGRAPHY REPORT ---
BILATERAL DIGITAL SCREENING MAMMOGRAM TOMOSYNTHESIS WITH CAD: 12/30/2016 CLINICAL HISTORY: Routine screening. Patient has no complaints. TECHNIQUE: Breast tomosynthesis in addition to standard 2D mammography was performed. Current study was also evaluated with a Computer Aided Detection (CAD) system. COMPARISON: Comparison is made to exams dated: 06/06/2015 mammogram, 04/25/2013 mammogram, 04/07/2013 m ammogram, 04/02/2012 mammogram, 03/25/2011 mammogram, and 09/18/2010 ultrasound - [facility]. BREAST COMPOSITION: There are scattered areas of fibroglandular density in both breasts. FINDINGS: There are stable benign-appearing circumscribed masses in both breasts. A stable ribbon sh aped metallic biopsy marker in the left upper outer posterior breast. Minimal vascular calcification and scattered punctate microcalcifications bilaterally. No new suspicious mass, architectural disto rtion or cluster of microcalcifications is seen. IMPRESSION: ACR BI-RADS CATEGORY 1: NEGATIVE There is no mammographic evidence of malignancy. A 1 year screening mammogram is recommended. The pa tient will receive written notification of the results. Approximately 10% of breast cancers are not detected with mammography. A negative mammographic report should not delay biopsy if a clinically suggestive mass is present. Magalis Mcintosh M.D. ay/:12/30/2016 17:19:30 Recorder [employer]: Rachel TALBERT)(Sharmaine), [facility] letter sent: Normal 1/2 BI-RADS Code: ACR BI-RADS Category 1: Negative
== END | disposition home or self-care (01) ==
LOC: C.MAMM 15:50
PROVIDERS: ATTEND Internal Medicine
DX: Z12.31 Encounter for screening mammogram for malignant neoplasm of breast (principal)

== ENCOUNTER → 2017-01-08 | Outpatient (CLI) | payer OTHER | END | disposition home or self-care (01) | LOC: C.LAB1850 13:57 | PROVIDERS: ATTEND Internal Medicine | DX: R74.8 Abnormal levels of other serum enzymes (principal) ==

== ENCOUNTER → 2017-05-18 | Outpatient (CLI) | payer BC ==
[2017-05-18 09:44] LABS: BASO % 0.6 %; BASO ABS # 0.03 K/uL (0-0.2); EOS ABS # 0.22 K/uL (0-0.5); HEMATOCRIT 42.6 % (37-47); HEMOGLOBIN 14.4 g/dL (12.0-16.0); IG# 0.01 K/uL (0.00-0.02); LYMPH ABS # 1.85 K/uL (1.2-3.4); MEAN CELL VOLUME 89.3 fL (80-100); MEAN CORPUSCULAR HEMOGLOBIN 30.2 pg (25-34); MEAN CORPUSCULAR HGB CONC 33.8 g/dl (32-36); MEAN PLATELET VOLUME 10.4 fL (7.4-10.4); MONO % 9.6 %; MONO ABS # 0.52 K/uL (0.11-0.59); NEUT % 51.6 %; NEUT ABS # 2.81 K/uL (1.4-6.5); PLATELET COUNT 267 K/uL (130-400); RED CELL DISTRIBUTION WIDTH CV 13.2 % (11.5-14.5); RED CELL DISTRIBUTION WIDTH SD 43.2 fL (36.4-46.3); WHITE BLOOD COUNT 5.44 K/uL (4.8-10.8)
[2017-05-18 10:13] LABS: HEMOGLOBIN A1C 5.9 % (4.5-5.6)
[2017-05-18 10:28] LABS: ALBUMIN 3.8 gm/dl (3.4-5.0); BLOOD UREA NITROGEN 17 mg/dl (7-18); CALCIUM 9.2 mg/dl (8.5-10.1); CARBON DIOXIDE 27 mmol/L (21-32); CREATININE 0.73 mg/dl (0.60-1.20); GLUCOSE 98 mg/dl (70-99); POTASSIUM 3.9 mmol/L (3.5-5.1); SODIUM 140 mmol/L (136-145)
[2017-05-18 10:39] LABS: ALKALINE PHOSPHATASE 89 U/L (45-117); ALT/SGPT 39 U/L (12-78); AST/SGOT 24 U/L (15-37); CHOLESTEROL 52 mg/dl (0-200); TOTAL PROTEIN 7.4 gm/dl (6.4-8.2)
== END | disposition home or self-care (01) ==
LOC: C.LAB1850 08:31
PROVIDERS: ATTEND Internal Medicine
DX: Z13.1 Encounter for screening for diabetes mellitus (principal); Z13.0 Encounter for screening for diseases of the blood and blood-forming organs and certain disorders involving the immune mechanism; Z13.220 Encounter for screening for lipoid disorders; R73.9 Hyperglycemia, unspecified; E88.81 Metabolic syndrome and other insulin resistance; E78.5 Hyperlipidemia, unspecified; E03.9 Hypothyroidism, unspecified

== ENCOUNTER → 2017-06-16 | Outpatient (CLI) | payer BC | END | disposition home or self-care (01) | LOC: C.LAB1850 09:05 | PROVIDERS: ATTEND Internal Medicine | DX: R31.9 Hematuria, unspecified (principal) ==

== ENCOUNTER → 2017-07-30 | Outpatient (CLI) | payer BC | END | disposition home or self-care (01) | LOC: C.PATHSPEC 17:26 | PROVIDERS: ATTEND Urology | DX: R31.9 Hematuria, unspecified (principal) ==

== ENCOUNTER → 2017-12-23 | Outpatient (CLI) | payer BC ==
[2017-12-23 09:37] LABS: HEMATOCRIT 41.1 % (37-47); HEMOGLOBIN 13.9 g/dL (12.0-16.0); MEAN CELL VOLUME 87.4 fL (80-100); MEAN CORPUSCULAR HEMOGLOBIN 29.6 pg (25-34); MEAN CORPUSCULAR HGB CONC 33.8 g/dl (32-36); MEAN PLATELET VOLUME 10.5 fL (7.4-10.4); PLATELET COUNT 266 K/uL (130-400); RED CELL DISTRIBUTION WIDTH CV 13.1 % (11.5-14.5); RED CELL DISTRIBUTION WIDTH SD 42.4 fL (36.4-46.3); WHITE BLOOD COUNT 5.21 K/uL (4.8-10.8)
[2017-12-23 10:17] LABS: ALBUMIN 3.7 gm/dl (3.4-5.0); ALKALINE PHOSPHATASE 78 U/L (45-117); ALT/SGPT 37 U/L (12-78); AST/SGOT 22 U/L (15-37); BLOOD UREA NITROGEN 14 mg/dl (7-18); CARBON DIOXIDE 27 mmol/L (21-32); CREATININE 0.84 mg/dl (0.60-1.20); GLUCOSE 132 mg/dl (70-99); POTASSIUM 4.2 mmol/L (3.5-5.1); SODIUM 140 mmol/L (136-145)
== END | disposition home or self-care (01) ==
LOC: C.LAB1850 08:08
PROVIDERS: ATTEND Physician Assistant
DX: E06.3 Autoimmune thyroiditis (principal); R53.81 Other malaise